=== PATIENT | female | born 1945 | race Caucasian/White ===

== ENCOUNTER 2018-02-12 11:22 | Emergency (ER) | payer MEDICARE, OTHER ==
[~2018-02-12] VITALS: Ht 154.9 cm; Wt 77.1 kg
[2018-02-12] MEDS ORDERED: KETO10 PO (12:09)
[2018-02-12] MEDS ORDERED: Crutch1 EACH MISC (12:44)
== END 2018-02-12 12:48 | disposition home or self-care (01) ==
LOC: ER 11:22
DX: S83.207A Unspecified tear of unspecified meniscus, current injury, left knee, initial encounter (principal); X58.XXXA Exposure to other specified factors, initial encounter; Z88.0 Allergy status to penicillin
CPT/HCPCS: 29505; 99283-25